=== PATIENT | female | born 1970 | race Caucasian/White ===

== ENCOUNTER 2016-05-26 22:04 | Emergency (ER) | payer OTHER ==
[2016-05-26] MEDS ORDERED: Tetan/Diph/Pertus SYR(Tdap)* 0.5 ML SYR(BOOSTRIX) use SYR IM ONE (23:45)
[2016-05-26] MEDS ORDERED: oxyCODONE/Acetamin 5/325 MG* TAB PO ONE (23:46)
--- NOTE | 2016-05-27 01:27 | ED ---
Skin Complaint - HPI Summary HPI Summary: Lt hand dominant pt here w/ Lt dorsal hand laceration prior to arrival. She was cutting callouses from the bottom on her feet with a razor blade and her hand slipped. Denies numbness, tingling, weakness. Unsure of last tetanus vaccine. - History of Current Complaint Chief Complaint: EDLacSutureRecheck Time Seen by Provider: 05/26/16 23:23 Stated Complaint: LEFT HAND LAC Hx Obtained From: Patient Hx Last Menstrual Period: 2 WEEKS AGO Pain Intensity: 5 - Allergy/Home Medications Allergies/Adverse Reactions: Allergies Allergy/AdvReac Type Severity Reaction Status Date / Time Tramadol Allergy Severe Seizures Verified 05/26/16 22:18 Sulfa Antibiotics Allergy Intermediate N/V Verified 05/26/16 22:18 Amoxicillin [From Augmentin] Allergy GI Upset Verified 05/26/16 22:18 Clavulanic Acid Allergy GI Upset Verified 05/26/16 22:18 [From Augmentin] PMH/Surg Hx/FS Hx/Imm Hx Previously Healthy: Yes Endocrine/Hematology History: Denies: Hx Anticoagulant Therapy, Hx Blood Disorders, Hx Diabetes, Hx Unexplained Bleeding, Hx Coagulopothy Cardiovascular History: Denies: Hx Hypertension, Hx Pacemaker/ICD, Other Cardiovascular Problems/ Disorders Respiratory History: Denies: Other Respiratory Problems/Disorders GI History: Reports: Hx Gastroesophageal Reflux Disease Denies: Other GI Disorders History: Denies: Hx Dialysis, Hx Renal Disease, Other Problems/Disorders Musculoskeletal History: Reports: Hx Arthritis - IN NECK, Hx Scoliosis Denies: Other Musculoskeletal History Sensory History: Reports: Hx Contacts or Glasses Denies: Hx Hearing Aid Opthamlomology History: Reports: Hx Contacts or Glasses Neurological History: Denies: Other Neuro Impairments/Disorders Psychiatric History: Reports: Hx Anxiety Denies: Hx Panic Disorder - Surgical History Surgery Procedure, Year, and Place: 2000, [facility] [place], APPENDECTOMY AND OVARIAN CYST RUPTURE. 2001, TUBAL LIGATION, [facility] [place]. 2009, TUBAL REVERSAL, [place]. Lt HAND - BIT BY CAT - I & D DUE TO INFECTION Hx Anesthesia Reactions: No Infectious Disease History: No Infectious Disease History: Denies: Traveled Outside the [place] in Last 30 Days - Family History Known Family History: Positive: None - Social History Occupation: Employed Full-time Lives: Alone - boyfriend visits often Alcohol Use: None Substance Use Type: Reports: None Smoking Status (MU): Former Smoker Type: Cigarettes Have You Smoked in the Last Year: Yes Review of Systems Negative: Arthralgia, Myalgia, Decreased ROM, Edema Skin: Other - see HPI Negative: Weakness, Paresthesia, Numbness Positive: Anxious All Other Systems Reviewed And Are Negative: Yes Physical Exam Triage Information Reviewed: Yes Vital Signs On Initial Exam: Initial Vitals Temp Pulse Resp BP Pulse Ox 99.1 F 97 16 150/91 100 05/26/16 22:07 05/26/16 22:07 05/26/16 22:07 05/26/16 22:07 05/26/16 22:07 Vital Signs Reviewed: Yes Appearance: Positive: Well-Appearing, No Pain Distress, Well-Nourished Skin: Positive: Warm - linear laceration over dorsum of Lt hand Head/Face: Positive: Normal Head/Face Inspection Eyes: Positive: Normal, EOMI ENT: Positive: Hearing grossly normal, Pharynx normal - mucosa moist Respiratory/Lung Sounds: Positive: Breath Sounds Present Cardiovascular: Positive: Normal, Pulses are Symmetrical in both Upper and Lower Extremities Musculoskeletal: Positive: Normal, Strength/ROM Intact Neurological: Positive: Normal, Sensory/Motor Intact, Alert, Oriented to Person Place, Time Psychiatric: Positive: Anxious Procedures - Laceration/Wound Repair 1 Location: upper extremity - Lt hand, dorsal aspect Description: Linear Anesthesia: Local, 1.0%, Lido, Epi Length, Depth and Shape: 3cm x 2mm Betadine Prep?: Yes Irrigated w/ Saline (ccs): 250 Laceration/Wound Explored: clean Closure: Single Layer Suture Type: Nylon - 5-0 Number of Sutures: 9 Layer Closure?: No Sterile Dressing Applied?: Yes - triple anbx ointment + tegaderm + gauze + wrap Diagnostics - Vital Signs Vital Signs Temp Pulse Resp BP Pulse Ox 05/26/16 22:07 99.1 F 97 16 150/91 100 - Laboratory Lab Statement: Any lab studies that have been ordered have been reviewed, and results considered in the medical decision making process. Course/Dx - Diagnoses Provider Diagnoses: Laceration of left hand Discharge - Discharge Plan Condition: Stable Disposition: HOME Patient Education Materials: Care For Your Stitches (ED), Laceration (ED) Referrals: Caio Mak MD [Primary Care Provider] - Additional Instructions: Keep dressing clean, dry and in place for 48 hours - after this time, you may remove dressing - gently wash daily with soap and water - rinse well and pat dry - reapply triple antibiotic ointment and clean gauze dressing - you may reapply DULCE wrap. Rest, ice, elevate and take ibuprofen with food as needed for pain Follow-up with PCP in 10 days for wound check and suture removal. *If you develop redness, swelling, streaking, purulent drainage, fever, chills, seek medical attention sooner or return to ED
[2016-05-27 01:49] VITALS: BP 138/74
== END 2016-05-27 01:47 | disposition home or self-care (01) ==
LOC: ED 22:04
DX: S61.412A Laceration without foreign body of left hand, initial encounter (principal); Z88.5 Allergy status to narcotic agent; Z88.1 Allergy status to other antibiotic agents; M19.90 Unspecified osteoarthritis, unspecified site; Z87.891 Personal history of nicotine dependence
CPT/HCPCS: 90471; 90715; 96374; 99282; A9270-GY